=== PATIENT | male | born 1970 | race Caucasian/White ===

== ENCOUNTER 2024-02-20 07:24 | Outpatient (CLI) | payer BC ==
[2024-02-21 13:52] LABS: TESTOSTERONE, SERUM 754 ng/dL (264-916)
== END 2024-02-20 23:59 | disposition home or self-care (01) ==
LOC: LAB 07:24
PROVIDERS: ATTEND Family Medicine
DX: E11.9 Type 2 diabetes mellitus without complications (principal); E29.1 Testicular hypofunction
CPT/HCPCS: 36415; 83036; 84402; 84403

== ENCOUNTER 2024-07-22 12:00 | Outpatient (CLI) | payer BC | END 2024-07-22 23:59 | disposition home or self-care (01) | LOC: RAD 12:00 | PROVIDERS: ATTEND Nurse Practitioner Family | DX: M79.641 Pain in right hand (principal); E11.9 Type 2 diabetes mellitus without complications; Z00.01 Encounter for general adult medical examination with abnormal findings; R53.83 Other fatigue; G47.09 Other insomnia; E29.1 Testicular hypofunction; Z68.38 Body mass index [BMI] 38.0-38.9, adult | CPT/HCPCS: 73130 ==